=== PATIENT | male | born 1995 | race Caucasian/White ===

== ENCOUNTER 2016-08-09 05:48 | Emergency (ER) | payer OTHER ==
[~2016-08-09] VITALS: Ht 182.9 cm; Wt 120.0 kg
[2016-08-09] MEDS ORDERED: METOCLOPRAMIDE INJ 10MG/2ML VIAL (J2765) IV ONE (06:15)
[2016-08-09] MEDS ORDERED: NS 1,000 ML IV ONE (06:15)
[2016-08-09 07:08] LABS: BASO % 0.6 % (0.0-1.0); EOS % 0.6 % (0.0-3.0); LARGE UNSTAINED CELL # 0.1 K/mm3 (0.0-0.4); LARGE UNSTAINED CELL % 1.9 % (0.0-4.0); LYMPH # 1.8 K/mm3 (1.5-6.5); LYMPH % 26.5 % (24.0-44.0); MEAN CORPUSCULAR HEMOGLOBIN 33.3 pg (27.0-33.0); MEAN CORPUSCULAR HGB CONC 36.5 g/dl (32.0-36.5); MONO # 0.3 K/mm3 (0.0-0.8); MONO % 5.4 % (0.0-5.0); NEUTROPHILS # 4.2 K/mm3 (1.8-7.7); NEUTROPHILS % 65.1 % (36.0-66.0); PLATELET COUNT, AUTOMATED 269 k/mm3 (150-450); RED CELL DISTRIBUTION WIDTH 13.5 % (11.5-14.5); WHITE BLOOD COUNT 6.4 K/mm3 (4.0-10.0)
[2016-08-09 07:13] LABS: METHADONE URINE NEGATIVE (NEGATIVE)
[2016-08-09 07:15] LABS: ALBUMIN 4.3 GM/DL (3.2-5.2); ALBUMIN/GLOBULIN RATIO 1.13 (1.00-1.93); ALKALINE PHOSPHATASE 56 U/L (45-117); ALT/SGPT 70 U/L (12-78); ANION GAP 11 MEQ/L (8-16); AST/SGOT 35 U/L (15-37); BILIRUBIN,DIRECT 0.2 MG/DL (0.0-0.2); BILIRUBIN,TOTAL 0.8 MG/DL (0.2-1.0); BLOOD UREA NITROGEN 13 MG/DL (7-18); CALCIUM LEVEL 9.7 MG/DL (8.5-10.1); CARBON DIOXIDE LEVEL 26 MEQ/L (21-32); CHLORIDE LEVEL 97 MEQ/L (98-107); CREATININE FOR GFR 1.15 MG/DL (0.70-1.30); GLOMERULAR FILTRATION RATE > 60.0 (>60); GLUCOSE, FASTING 122 MG/DL (70-105); MAGNESIUM LEVEL 1.5 MG/DL (1.8-2.4); POTASSIUM SERUM 3.3 MEQ/L (3.5-5.1); SODIUM LEVEL 134 MEQ/L (136-145); TOTAL PROTEIN 8.1 GM/DL (6.4-8.2)
[2016-08-09] MEDS ORDERED: MAGNESIUM OXIDE 400 MG TAB (MAG-OX) PO ONE (07:45)
[2016-08-09] MEDS ORDERED: POTASSIUM CHLORIDE 10 MEQ SR TABLET PO ONE (07:45)
[2016-08-09 08:04] VITALS: BP 178/92
--- NOTE | 2016-08-09 08:13 | ED PDOC ---
Post-Departure Follow-Up not notified by nursing of patient's discharge blood pressure. elevation likely due to medication non-compliance and acute illness. I confirmed with patient that he has blood pressure medication at home and gave instruction to resume medications and follow up next week with primary care provider. Patient had no complaints of headache, blurry vision or chest pain during stay in ER [facility] PA-C. Aug 09, 2016 08:13
== END 2016-08-09 08:05 | disposition home or self-care (01) ==
LOC: M ED 06:40
DX: T62.91XA Toxic effect of unspecified noxious substance eaten as food, accidental (unintentional), initial encounter (principal); R11.2 Nausea with vomiting, unspecified; E86.0 Dehydration; I10 Essential (primary) hypertension; Z91.14 Patient's other noncompliance with medication regimen; F17.210 Nicotine dependence, cigarettes, uncomplicated
CPT/HCPCS: 80048; 80076; 80306; 81001; 82550; 83690; 83735; 85025; 96361; 96374; 99283; J2765

== ENCOUNTER 2016-09-19 12:58 | Emergency (ER) | payer OTHER ==
[~2016-09-19] VITALS: Ht 154.9 cm; Wt 133.7 kg
[2016-09-19] MEDS ORDERED: HYDR25TAB PO (13:06)
[2016-09-19 14:59] VITALS: BP 144/81
== END 2016-09-19 15:01 | disposition home or self-care (01) ==
LOC: M ED 12:58
DX: F10.10 Alcohol abuse, uncomplicated (principal); I10 Essential (primary) hypertension; Z79.899 Other long term (current) drug therapy

== ENCOUNTER 2016-09-20 12:27 | Emergency (ER) | payer OTHER ==
[~2016-09-20] VITALS: Ht 180.3 cm; Wt 125.0 kg
[~2016-09-20 12:27] MED LIST: HYDR25TAB PO
[2016-09-20] MEDS ORDERED: OXAZEPAM 15 MG CAP PO ONE (13:00)
[2016-09-20] MEDS ORDERED: LISINOPRIL 20 MG TAB PO ONE (13:00)
[2016-09-20] MEDS ORDERED: ONDANSETRON 4MG/2ML VIAL (J2405) IV ONE (13:15)
[2016-09-20 13:33] LABS: BASO % 0.7 % (0.0-1.0); EOS % 0.3 % (0.0-3.0); LARGE UNSTAINED CELL # 0.1 K/mm3 (0.0-0.4); LARGE UNSTAINED CELL % 1.7 % (0.0-4.0); LYMPH # 1.8 K/mm3 (1.5-6.5); LYMPH % 26.5 % (24.0-44.0); MEAN CORPUSCULAR HEMOGLOBIN 32.6 pg (27.0-33.0); MEAN CORPUSCULAR HGB CONC 36.1 g/dl (32.0-36.5); MEAN CORPUSCULAR VOLUME 90.3 fl (80.0-96.0); MONO # 0.3 K/mm3 (0.0-0.8); MONO % 4.9 % (0.0-5.0); NEUTROPHILS # 4.2 K/mm3 (1.8-7.7); NEUTROPHILS % 65.9 % (36.0-66.0); PLATELET COUNT, AUTOMATED 275 k/mm3 (150-450); RED CELL DISTRIBUTION WIDTH 13.4 % (11.5-14.5); WHITE BLOOD COUNT 6.3 K/mm3 (4.0-10.0)
[2016-09-20 13:34] VITALS: BP 162/76
[2016-09-20 13:44] LABS: ALBUMIN 3.9 GM/DL (3.2-5.2); ALBUMIN/GLOBULIN RATIO 1.08 (1.00-1.93); ALKALINE PHOSPHATASE 48 U/L (45-117); ALT/SGPT 67 U/L (12-78); ANION GAP 9 MEQ/L (8-16); AST/SGOT 36 U/L (15-37); BILIRUBIN,DIRECT 0.2 MG/DL (0.0-0.2); BILIRUBIN,TOTAL 0.8 MG/DL (0.2-1.0); BLOOD UREA NITROGEN 13 MG/DL (7-18); CARBON DIOXIDE LEVEL 28 MEQ/L (21-32); CHLORIDE LEVEL 105 MEQ/L (98-107); CREATININE FOR GFR 1.17 MG/DL (0.70-1.30); GLOMERULAR FILTRATION RATE > 60.0 (>60); GLUCOSE, FASTING 116 MG/DL (70-105); POTASSIUM SERUM 3.8 MEQ/L (3.5-5.1); SODIUM LEVEL 142 MEQ/L (136-145); TOTAL PROTEIN 7.5 GM/DL (6.4-8.2)
[2016-09-20 15:38] VITALS: BP 146/66
== END 2016-09-20 15:51 | disposition home or self-care (01) ==
LOC: EDBD 12:27 → M ED 12:27
DX: F10.10 Alcohol abuse, uncomplicated (principal); I10 Essential (primary) hypertension; Z91.14 Patient's other noncompliance with medication regimen; R11.0 Nausea
CPT/HCPCS: 80048; 80076; 83690; 85025; 93041; 94760; 96374; 99285; G0480; J2405

== ENCOUNTER 2016-09-29 20:13 | Inpatient (IN) | payer OTHER ==
[~2016-09-29] VITALS: Ht 180.3 cm; Wt 129.0 kg
[2016-09-29 21:05] LABS: MEAN CORPUSCULAR HEMOGLOBIN 33.6 pg (27.0-33.0); MEAN CORPUSCULAR HGB CONC 36.4 g/dl (32.0-36.5); MEAN CORPUSCULAR VOLUME 92.2 fl (80.0-96.0); RED CELL DISTRIBUTION WIDTH 12.4 % (11.5-14.5); WHITE BLOOD COUNT 6.8 K/mm3 (4.0-10.0)
[2016-09-29 21:29] LABS: ALBUMIN 3.8 GM/DL (3.2-5.2); ALBUMIN/GLOBULIN RATIO 1.09 (1.00-1.93); ALKALINE PHOSPHATASE 56 U/L (45-117); ALT/SGPT 116 U/L (12-78); ANION GAP 15 MEQ/L (8-16); AST/SGOT 52 U/L (15-37); BILIRUBIN,DIRECT 0.1 MG/DL (0.0-0.2); BILIRUBIN,TOTAL 0.3 MG/DL (0.2-1.0); BLOOD UREA NITROGEN 14 MG/DL (7-18); CALCIUM LEVEL 8.1 MG/DL (8.5-10.1); CARBON DIOXIDE LEVEL 21 MEQ/L (21-32); CHLORIDE LEVEL 108 MEQ/L (98-107); GLOMERULAR FILTRATION RATE > 60.0 (>60); GLUCOSE, FASTING 146 MG/DL (70-105); POTASSIUM SERUM 3.7 MEQ/L (3.5-5.1); SODIUM LEVEL 144 MEQ/L (136-145); TOTAL PROTEIN 7.3 GM/DL (6.4-8.2)
[2016-09-29 21:44] LABS: METHADONE URINE NEGATIVE (NEGATIVE)
[2016-09-30] MEDS ORDERED: MOM 30ML SUSPENSION UDC PO PRN (10:45)
[2016-09-30] MEDS ORDERED: LORazepam 2 MG TAB PO PRN (10:45)
[2016-09-30] MEDS ORDERED: MAALOX 30 ML SUSP *UDC PO PRN (10:45)
[2016-09-30] MEDS ORDERED: ACETAMINOPHEN TAB 650MG DOSE (2X325MG) PO PRN (10:45)
[2016-09-30] MEDS: MULTIVITAMINS/MINERALS THERAP 1 TAB PO SCH (11:09)
[2016-09-30] MEDS: FOLIC ACID 1 MG TAB PO SCH (11:09)
[2016-09-30] MEDS: CitaloPRAM (CeleXA) 20 MG TAB PO SCH (11:09)
[2016-09-30] MEDS: THIAMINE 100 MG TAB PO SCH ×2 (11:09→21:40)
[2016-09-30 12:57] VITALS: BP 162/92
[2016-09-30] MEDS ORDERED: HALOPERIDOL 5 MG TAB PO PRN (14:00)
[2016-09-30 14:57] VITALS: BP 150/81
[2016-09-30 18:50] VITALS: BP 130/80
--- NOTE | 2016-09-30 20:55 | MHHPE ---
DATE OF ADMISSION: 09/30/2016 CURRENT MEDICATIONS: None. CHIEF COMPLAINT: "I am an alcoholic." HISTORY OF PRESENT ILLNESS: This is a 21-year-old white male, single living in the [facility]. He has been in the [employer] for 2-1/2 years. He has been enrolled in the [facility]'s ENA program. He drinks on a daily basis, mostly at night, to help him sleep. He has had insomnia for approximately one year. He has a sleep latency of 2+ hours. He always wakes up at 3:00 a.m. He never feels rested in the morning when he does wake up. He feels tired all day long. He continues to drink heavily at night even though it has not been very beneficial for his insomnia. He has never had a sleep study. He does snore heavily. 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 He has gained 50 pounds since being in the [facility]. He likes to drink whiskey to the point of black outs. He has never had delirium tremens or seizures. The patient has been called "ENA failure." He is at risk of being terminated from the . The patient was drinking heavily last night and texted his father that he did not want to live anymore. He also commented on getting a life insurance policy. The patient denies a history of depression. He states that his appetite is good, in fact it is too good. He has gained weight, as mentioned above. He states that his concentration is fine. His level of energy is relatively good. He states that his motivation is fine. He minimizes any history of depression. He denies a history of anxiety disorder. PAST PSYCHIATRIC HISTORY: The patient has never seen a psychiatrist. He is not enrolled in the [place] [facility], just the ENA program. He has never been in a psychiatric hospital. He has never been on psychotropics. No history of suicide attempts. MEDICAL HISTORY: 1. Hypertension. 2. He has a bad left knee. 3. The patient may have sleep apnea but has not been tested. SURGICAL HISTORY: Two knee operations and a slipped knee. ALLERGIES TO MEDICATIONS: None. LEGAL HISTORY: None noted. CHEMICAL DEPENDENCY: History of alcoholism. He has never been in the inpatient rehabilitation. He refuses inpatient rehabilitation claiming that it would be like shelter. SOCIAL HISTORY: The patient's father was in the [employer]. He was born in [place]. The patient graduated high school in [place]. His father is now out of the and his parents are now living in [place]. The patient has a 17-year-old brother who just graduated high school. Relationship with his family is good. The patient did go to college for one year after high school before joining the [employer]. The patient hopes to get the GI bill. This may be at risk if he is terminated early. FAMILY PSYCHIATRIC HISTORY: The patient states that his grandfather is an alcoholic. No other family history of depression. MENTAL STATUS EXAMINATION: The patient is alert and oriented. He is irritable. He is on edge. He is anxious. He seems dysphoric. Insight appears poor. Judgment appears poor. He denies being suicidal or homicidal. No signs of psychosis. He is not hearing voices. No paranoia or thought disorder. Grooming and hygiene appear good. Memory functions appear intact. ASSESSMENT: The patient may have sleep apnea, as mentioned above. The patient does appear to have chronic insomnia, which has worsened over the past year as he has gained 50 pounds. The patient is self medicating with alcohol. The patient has failed two ENA programs and is unfortunately not willing to consider an inpatient rehabilitation. DIAGNOSES: 1. Adjustment disorder with mixed emotional features. 2. Alcohol use disorder. PLAN: confirmed. Continue Celexa 20 mg in the morning prescribed by Dr. Hyde. Add Topamax 50 mg at night to help possibly with sleep and alcohol craving. The patient is to be involved with hospital milieu.
[2016-09-30] MEDS: TOPIRAMATE (TopAMAX) 25 MG TAB PO SCH (21:40)
[2016-10-01 07:07] VITALS: BP 165/101
[2016-10-01] MEDS: FOLIC ACID 1 MG TAB PO SCH (08:18)
[2016-10-01] MEDS: THIAMINE 100 MG TAB PO SCH ×2 (08:18→21:14)
[2016-10-01] MEDS: MULTIVITAMINS/MINERALS THERAP 1 TAB PO SCH (08:18)
[2016-10-01] MEDS: CitaloPRAM (CeleXA) 20 MG TAB PO SCH (08:18)
[2016-10-01 08:30] VITALS: BP 158/94
--- NOTE | 2016-10-01 10:10 | HPEPDOC ---
Medical History and Physical Date of Admission Sep 30, 2016 at 10:34 History and Physical PCP: [facility] ATTENDING: Dr. Denis Smyth HPI: 21yoM admitted to [facility] for unspecified depressive disorder, being medically examined today. No acute medical complaints today. Denies any fevers, chills, weakness, fatigue, JAMIL, CP, SOB, cough, palpitations, abdominal pain, N/V /D or changes in bowel or bladder habits. PMHx: Hypertension Chronic left knee pain PSHX: Left knee ACL/MCL/meniscus repair SOCHX: Resides in: [facility], from [place] Marital Status: Single Kids: None Employment: Active duty Tobacco use: One half to one pack per day ETOH: Fifth of liquor daily since January 2016 Illicit Drugs: Denies IV Drug Use: Denies Tattoos done unprofessionally: Denies FAMHX: Mother: Alive, well Father: Alive, hypertension Siblings: Brother Alive, well Children: None Unexpected deaths due to medical reasons: None. ROS: As noted in HPI, otherwise 11pt ROS of systems reviewed and unremarkable. PE: GEN: 21yoM, appears stated age. Well-nourished, well developed. No acute distress. Alert and oriented x 3. Pleasant, interactive. HEENT: Normocephalic, atraumatic. Pupils are equal, round, and reactive to light. Extraocular movements are intact. No nystagmus appreciated. Sclera are nonicteric. Conjunctiva without injection. Nose midline. Nasal turbinates without bogginess. EACs both patent BL. TMs both visualized and dos santos with good cone of light, no bulging or erythema. No facial asymmetry. Moist mucous membranes. Dentition fair. Pharynx pink and moist, no cobblestoning. Neck supple , trachea midline. No lymphadenopathy or thyromegaly appreciated. CHEST: Regular rate and rhythm, +S1, +S2 LUNGS: Clear to auscultation bilaterally. No wheezes, rales, or rhonchi. Breathing appears symmetric and easy. Patient is speaking in full sentences. No accessory muscle use. ABD: Round, soft, non-tender, non-distended. +Bowel sounds throughout. No rebound or guarding. No costovertebral angle tenderness. EXT: Pulses 2+ bilaterally dorsalis pedis and radial. No lower extremity edema appreciated. SKIN: Brownlee, dry, warm. Capillary refill <2sec. No rashes. NEURO: Alert and oriented x 3. Cranial nerves III-XII are intact. No focal deficits appreciated. EKG: pending. A&P: 21yoM admitted to [facility] for unspecified depressive disorder 1. Psych. Plan per Psychiatry. Obtain baseline EKG to assure the safety of psychiatric medications as they can prolong the QT interval. 2. Nicotine dependence. Patch available. 3. Elevated LFTs. Recheck CMP in a.m. 4. Follow up with PCP on discharge. 5. Substance abuse. Per psychiatry. Continue with MVI, Thiamine, and Folic Acid supplementation. 6. Elevated glucose. Recheck fasting CMP in a.m. Check hemoglobin A1c. 7. Obesity. BMI 39.9. Complicates care. TSH within normal limits. Add hemoglobin A1c. 8. Hypertension. Continue HCTZ 25 mg by mouth daily. Monitor blood pressure trend. 9. Staff member Efrain present throughout exam. Vital Signs Vital Signs Date Time Temp Pulse Resp B/P (MAP) Pulse Ox O2 Delivery O2 Flow Rate FiO2 10/01/16 07:07 98.0 78 18 165/101 (122) Room Air 09/30/16 18:50 95 Laboratory Data Labs 24H Item Value Date Time White Blood Count 6.8 K/mm3 09/29/162051 Red Blood Count 4.95 M/mm3 09/29/162051 Hemoglobin 16.6 g/dl 09/29/162051 Hematocrit 45.6 % 09/29/162051 Mean Corpuscular Volume 92.2 fl 09/29/162051 Mean Corpuscular Hemoglobin 33.6 pg H 09/29/162051 Mean Corpuscular Hemoglobin Concent 36.4 g/dl 09/29/162051 Red Cell Distribution Width 12.4 % 09/29/162051 Platelet Count 301 k/mm3 09/29/162051 Sodium Level 144 MEQ/L 09/29/162052 Potassium Level 3.7 MEQ/L 09/29/162052 Chloride Level 108 MEQ/L H 09/29/162052 Carbon Dioxide Level 21 MEQ/L 09/29/162052 Anion Gap 15 MEQ/L 09/29/162052 Blood Urea Nitrogen 14 MG/DL 09/29/162052 Creatinine 1.00 MG/DL 09/29/162052 Glomerular Filtration Rate > 60.0 09/29/162052 Fasting Glucose 146 MG/DL H 09/29/162052 Calcium Level 8.1 MG/DL L 09/29/162052 Total Bilirubin 0.3 MG/DL 09/29/162052 Direct Bilirubin 0.1 MG/DL 09/29/162052 Aspartate Amino Transf (AST/SGOT) 52 U/L H 09/29/162052 Alanine Aminotransferase (ALT/SGPT) 116 U/L H 09/29/162052 Alkaline Phosphatase 56 U/L 09/29/162052 Total Protein 7.3 GM/DL 09/29/162052 Albumin 3.8 GM/DL 09/29/162052 Albumin/Globulin Ratio 1.09 09/29/162052 Thyroid Stimulating Hormone (TSH) 1.260 uIU/ML 09/29/162052 Salicylates Level < 1.7 MG/DL L 09/29/162052 Urine Opiates Screen NEGATIVE 09/29/162051 Urine Methadone Screen NEGATIVE 09/29/162051 Acetaminophen Level < 2.0 UG/ML L 09/29/162052 Urine Barbiturates Screen NEGATIVE 09/29/162051 Urine Phencyclidine Screen NEGATIVE 09/29/162051 Urine Amphetamines Screen NEGATIVE 09/29/162051 Urine Benzodiazepines Screen NEGATIVE 09/29/162051 Urine Cocaine Metabolite Screen NEGATIVE 09/29/162051 Urine Cannabinoids Screen NEGATIVE 09/29/162051 Ethyl Alcohol Level 0.300 % H 09/29/162052 Home Medications Scheduled Hydrochlorothiazide (Hydrochlorothiazide) 25 Mg Tab, 25 MG PO DAILY Allergies Coded Allergies: No Known Allergies (Unverified , 09/29/16) Guillermina Arteaga Oct 01, 2016 10:10
[2016-10-01] MEDS: hydroCHLOROthiazide 25 MG TAB PO SCH (10:24)
[2016-10-01 11:46] VITALS: BP 148/96
--- NOTE | 2016-10-01 12:06 | MHIPN ---
DATE: 10/01/2016 VITAL SIGNS: Temperature 98.0, pulse 78, respirations 18, blood pressure 165/101. CURRENT MEDICATIONS: - Celexa 20 mg in the morning - Topamax 50 mg at night - trazodone 50 mg at night as needed - folic acid 1 mg daily - multivitamin daily - thiamine 100 mg twice a day HISTORY OF PRESENT ILLNESS: The patient complains of the heat in his room. Last night he found it hard to sleep. He does have chronic insomnia, however, as well. His roommate is leaving so the patient plans to move closer to the air conditioner unit. He reports that his depression is minimal. Anxiety is mild. Alcohol withdrawal symptoms are mild as well. He tolerated the morning dose of Celexa well. He has had no side effects on the Topamax last night. The patient has resigned himself to be here. The patient is encouraged to attend milieu therapy program. The patient states that his father flew in last night from [place] and will be visiting later today. MENTAL STATUS EXAMINATION: The patient is alert, oriented, cooperative. Affect is sad and appears subdued. He minimizes depression. Anxiety appears mild to moderate. He denies any psychotic symptoms. No signs of paranoia or thought disorder. Grooming and hygiene appear good. He denies being homicidal or suicidal. DIAGNOSES: 1. Adjustment disorder with mixed emotional features. 2. Alcohol use disorder. PLAN: Continue Celexa and Topamax combination. Involve in hospital milieu. Monitor mood for any suicide potential.
[2016-10-01 18:17] VITALS: BP 150/96
[2016-10-01 21:13] VITALS: BP 150/90
[2016-10-01] MEDS: traZODone 50 MG TAB PO PRN (21:14)
[2016-10-01] MEDS: TOPIRAMATE (TopAMAX) 25 MG TAB PO SCH (21:14)
[2016-10-02 07:01] VITALS: BP 118/82
[2016-10-02 08:21] LABS: ALBUMIN 4.3 GM/DL (3.2-5.2); ALBUMIN/GLOBULIN RATIO 1.19 (1.00-1.93); ALKALINE PHOSPHATASE 62 U/L (45-117); ALT/SGPT 91 U/L (12-78); ANION GAP 10 MEQ/L (8-16); AST/SGOT 29 U/L (15-37); BILIRUBIN,TOTAL 1.2 MG/DL (0.2-1.0); BLOOD UREA NITROGEN 16 MG/DL (7-18); CALCIUM LEVEL 9.8 MG/DL (8.5-10.1); CARBON DIOXIDE LEVEL 28 MEQ/L (21-32); CHLORIDE LEVEL 101 MEQ/L (98-107); CREATININE FOR GFR 1.28 MG/DL (0.70-1.30); GLOMERULAR FILTRATION RATE > 60.0 (>60); GLUCOSE, FASTING 116 MG/DL (70-105); POTASSIUM SERUM 4.2 MEQ/L (3.5-5.1); SODIUM LEVEL 139 MEQ/L (136-145); TOTAL PROTEIN 7.9 GM/DL (6.4-8.2)
[2016-10-02] MEDS: CitaloPRAM (CeleXA) 20 MG TAB PO SCH (09:10)
[2016-10-02] MEDS: MULTIVITAMINS/MINERALS THERAP 1 TAB PO SCH (09:10)
[2016-10-02] MEDS: FOLIC ACID 1 MG TAB PO SCH (09:10)
[2016-10-02] MEDS: hydroCHLOROthiazide 25 MG TAB PO SCH (09:10)
[2016-10-02] MEDS: THIAMINE 100 MG TAB PO SCH ×2 (09:10→21:33)
[2016-10-02 10:34] VITALS: BP 118/82
[2016-10-02 18:11] VITALS: BP 134/90
--- NOTE | 2016-10-02 19:42 | MHIPN ---
DATE: 10/02/2016 VITAL SIGNS: Temperature 97.9, pulse 96, respirations 18, blood pressure 118.82. CURRENT MEDICATION: - Topamax 50 mg at bedtime (hs), - trazodone 50 mg at bedtime (hs) - Celexa 20 mg every morning HISTORY OF PRESENT ILLNESS: The patient feels much cooler in his room now. His bed is right next to the air conditioner. He sleep much better with the combination trazodone and Topamax. The insomnia had also been the big trigger for relapse. The patient reports his anxiety symptoms to be mild. Denies current depressive symptoms. His father is visiting from [place] The patient appreciates this. The patient complains of feeling bored here on the unit and is unhappy being hospitalized. 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 He is having no side effects from the Celexa or Topamax. He states that he will probably discontinue the psychiatric medications upon discharge as he does not believe in them. MENTAL STATUS EXAMINATION: The patient is alert, oriented and cooperative. Affect remains subdued with some dysphoria, but he denies depression. Anxiety is mild. He is not psychotic. He denies being suicidal or homicidal. No signs of psychosis. Grooming and hygiene are good. DIAGNOSIS: 1. Adjustment disorder with mixed emotional features. 2. Alcohol use disorder. PLAN: Continue psychotropics. Staff interviewed his father. Encouraged the patient to be involved in hospital Milieu.
[2016-10-02] MEDS: TOPIRAMATE (TopAMAX) 100 MG TAB PO SCH (21:33)
[2016-10-02] MEDS: traZODone 50 MG TAB PO PRN (21:34)
--- NOTE | 2016-10-02 22:43 | ECGEPIP ---
Stationary ECG Study [facility] Test Date: 2016-10-01 Pat Name: GALEN RODRIGEZ Department: Room: [place] [address] Gender: M Local Sales Manager: RADHA : 1995 Requested By: Guillermina Arteaga Order Number: [id number] Reading MD: Truman Rogers Measurements Intervals [place] Rate: 79 P: 69 [place]: 152 QRS: -8 QRSD: 117 T: -14 QT: 369 QTc: 423 Interpretive Statements SINUS RHYTHM MODERATE INTRAVENTRICULAR CONDUCTION DELAY NO PRIOR TRACING IN THE SYSTEM Electronically Signed On 10-02-2016 22:43:06 EDT by Truman Rogers
[2016-10-03 07:18] VITALS: BP 123/69
[2016-10-03 07:46] LABS: ALBUMIN/GLOBULIN RATIO 1.03 (1.00-1.93); ALKALINE PHOSPHATASE 59 U/L (45-117); ALT/SGPT 78 U/L (12-78); ANION GAP 7 MEQ/L (8-16); AST/SGOT 25 U/L (15-37); BILIRUBIN,TOTAL 0.7 MG/DL (0.2-1.0); BLOOD UREA NITROGEN 18 MG/DL (7-18); CALCIUM LEVEL 9.3 MG/DL (8.5-10.1); CARBON DIOXIDE LEVEL 29 MEQ/L (21-32); CHLORIDE LEVEL 102 MEQ/L (98-107); CREATININE FOR GFR 1.18 MG/DL (0.70-1.30); GLOMERULAR FILTRATION RATE > 60.0 (>60); GLUCOSE, FASTING 99 MG/DL (70-105); POTASSIUM SERUM 3.6 MEQ/L (3.5-5.1); SODIUM LEVEL 138 MEQ/L (136-145); TOTAL PROTEIN 7.9 GM/DL (6.4-8.2)
[2016-10-03] MEDS: hydroCHLOROthiazide 25 MG TAB PO SCH (08:13)
[2016-10-03] MEDS: MULTIVITAMINS/MINERALS THERAP 1 TAB PO SCH (08:13)
[2016-10-03] MEDS: CitaloPRAM (CeleXA) 20 MG TAB PO SCH (08:13)
[2016-10-03] MEDS: FOLIC ACID 1 MG TAB PO SCH (08:13)
[2016-10-03 18:00] VITALS: BP 114/78
--- NOTE | 2016-10-03 18:20 | MHIPN ---
DATE: 10/03/2016 VITAL SIGNS: Temperature 98.3, pulse 80, respirations 18, blood pressure 123/69. CURRENT MEDICATIONS: - Topamax 100 mg at night - trazodone 50 mg at night as needed - Celexa 20 mg in the morning HISTORY OF PRESENT ILLNESS: The patient is still sleeping better. He finds the medication helpful. He falls asleep in about one hour, which is marked progress for him. He will toss and turn at night. He wakes up in the morning feeling more rested. He has no side effects from the Topamax or trazodone. His father did visit and convinced him to into a 28 day inpatient chemical dependency unit through the [employer]. The patient is strongly urged to consider this very good advice. The patient's father is visiting frequently, but has to go back to [place] this weekend as he is a teacher. MENTAL STATUS EXAMINATION: The patient is alert, oriented and cooperative. Affect is somewhat brighter. He still reports some dysphoria and mild depression. Anxiety is mild. No signs of psychosis. The patient is not a danger to self or others. The patient is not psychotic. DIAGNOSES: 1. Adjustment disorder with mixed emotional features. 2. Alcohol use disorder. PLAN: Continue current psychotropics. Obtain input from father. Encourage 28 day inpatient chemical dependency program.
[2016-10-03] MEDS: TOPIRAMATE (TopAMAX) 100 MG TAB PO SCH (20:15)
[2016-10-04 06:00] VITALS: BP 171/92
[2016-10-04] MEDS: hydroCHLOROthiazide 25 MG TAB PO SCH (08:30)
[2016-10-04] MEDS: CitaloPRAM (CeleXA) 20 MG TAB PO SCH (08:30)
[2016-10-04] MEDS: MULTIVITAMINS/MINERALS THERAP 1 TAB PO SCH (08:30)
[2016-10-04] MEDS: FOLIC ACID 1 MG TAB PO SCH (08:30)
[2016-10-04 08:31] VITALS: BP 142/80
[2016-10-04 18:00] VITALS: BP 138/78
--- NOTE | 2016-10-04 19:25 | MHIPN ---
DATE: 10/04/2016 VITAL SIGNS: Temperature 97.1, pulse 70, respirations 18, blood pressure 171/92. CURRENT MEDICATIONS: - Topamax 100 mg at bedtime - trazodone 50 mg at bedtime as needed - Celexa 20 mg every morning HISTORY OF PRESENT ILLNESS: The patient states his appetite remains good. The quality of his sleep is better since being on the psychotropics. It still takes about an hour of sleep latency before he falls asleep at night. He will wake up 3-4 times at night for about 20 minutes at a stretch. This is actually a marked improvement over the past. He is having no side effects from the Topamax. His father is visiting. He states his mood is improving. He is socializing well with his peers in the here on the unit. MENTAL STATUS EXAMINATION: Mood and affect appear improved with good eye contact. Anxiety is reduced. Depression reduced. Not suicidal. Not homicidal. Insight and judgment seem improved. DIAGNOSES: 1. Adjustment disorder with mixed emotional features. 2. Alcohol use disorder. PLAN: Increase Topamax up to 150 mg at bedtime. No change in Celexa and trazodone. Monitor over the weekend. Contact father for collateral input. LILLI
[2016-10-04] MEDS: TOPIRAMATE (TopAMAX) 100 MG TAB PO SCH (21:15)
[2016-10-05 07:14] VITALS: BP 138/88
[2016-10-05] MEDS: CitaloPRAM (CeleXA) 20 MG TAB PO SCH (08:16)
[2016-10-05] MEDS: FOLIC ACID 1 MG TAB PO SCH (08:16)
[2016-10-05] MEDS: hydroCHLOROthiazide 25 MG TAB PO SCH (08:16)
[2016-10-05] MEDS: MULTIVITAMINS/MINERALS THERAP 1 TAB PO SCH (08:17)
[2016-10-05 18:00] VITALS: BP 140/90
[2016-10-05] MEDS: TOPIRAMATE (TopAMAX) 100 MG TAB PO SCH (21:09)
[2016-10-05] MEDS: traZODone 50 MG TAB PO PRN (21:10)
[2016-10-06 06:44] VITALS: BP 132/62
[2016-10-06] MEDS: CitaloPRAM (CeleXA) 20 MG TAB PO SCH (08:37)
[2016-10-06] MEDS: hydroCHLOROthiazide 25 MG TAB PO SCH (08:37)
[2016-10-06] MEDS: FOLIC ACID 1 MG TAB PO SCH (08:37)
[2016-10-06] MEDS: MULTIVITAMINS/MINERALS THERAP 1 TAB PO SCH (08:37)
[2016-10-06 18:40] VITALS: BP 124/82
[2016-10-06] MEDS: TOPIRAMATE (TopAMAX) 100 MG TAB PO SCH (22:30)
[2016-10-06] MEDS: traZODone 50 MG TAB PO PRN (22:31)
[2016-10-07 06:50] VITALS: BP 137/72
[2016-10-07] MEDS: CitaloPRAM (CeleXA) 20 MG TAB PO SCH (08:18)
[2016-10-07] MEDS: MULTIVITAMINS/MINERALS THERAP 1 TAB PO SCH (08:18)
[2016-10-07] MEDS: FOLIC ACID 1 MG TAB PO SCH (08:18)
[2016-10-07] MEDS: hydroCHLOROthiazide 25 MG TAB PO SCH (08:19)
[2016-10-07] MEDS ORDERED: TOPI200T7 PO (11:13)
[2016-10-07] MEDS ORDERED: CELE20TA PO (11:13)
[2016-10-07] MEDS ORDERED: TRAZ-136 PO (11:13)
[2016-10-07] MEDS ORDERED: traZODone 100 MG TAB PO PRN (11:15)
--- NOTE | 2016-10-07 15:26 | MHDS ---
DATE OF ADMISSION: 09/30/2016 DATE OF DISCHARGE: 10/07/2016 VITAL SIGNS: Temperature 98.4, pulse 89, respirations 18, blood pressure 137/72. LABORATORY DATA: CBC within normal limits except for MCH of 33.6. Serum chemistry normal. Toxicology screen was negative. Ethyl alcohol was 0.3, however. DISCHARGE MEDICATIONS: - Topamax 200 mg at bedtime - trazodone 100 mg at bedtime as needed - hydrochlorothiazide 25 mg daily - Celexa 20 mg every morning DISCHARGE DIAGNOSES: 1. Adjustment disorder with mixed emotional features. 2. Alcohol use disorder. CHIEF COMPLAINT: "I'm an alcoholic." HISTORY OF PRESENT ILLNESS: This is a 21-year-old white male, single, living in the [facility]. He has been in the [employer] for two and a half years. He has been enrolled in the [employer] substance abuse [facility] (ENA) program. He is still drinking on a daily basis. He claims he drinks at night to help with insomnia. He has had insomnia for approximately one year. He has a sleep latency of 2-3 hours a night. He always wakes up at 3:00 a.m. as well. The patient has gained 50 pounds since being in the [employer]. He does snore heavily. He has never been checked for sleep apnea, he claims. He does have a history of blackouts with his alcohol consumption. He likes to drink whiskey. The patient had texted his father while intoxicated that he did not want to live any longer. He had also commented that he was getting a life insurance policy. PROGRESS ON THE UNIT: The patient was placed on the clinical institute withdrawal assessment (CIWA) protocol but did not show signs of alcohol withdrawal. The patient was placed on citalopram 20 mg every morning to help with any depressive symptoms. He was started on Topamax 50 mg at bedtime to help with sleep and possibly for alcohol craving. Side effect profile of Topamax was reviewed with the patient. He has no history of kidney stones. He is encouraged to drink plenty water and fluids. The Topamax was gradually increased during his hospital stay up to a total of 200 mg at bedtime at time of discharge. He tolerated it well. He has no paresthesias. His mood definitely improved. His father visited from [place] and was quite supportive. He was reasonably well active in the therapy group program here on the unit. The patient's father had highly recommended that he consider the 28-day inpatient chemical dependency program. He was initially quite resistant but with his father's positive support, he appeared to willing to follow through with this treatment option. The patient shared that he was skeptical about taking medications and could not commit that he would continue them upon discharge. The patient was encouraged to do so, however. The patient was agreeable to followup with outpatient behavioral health program. MENTAL STATUS EXAMINATION: At time of discharge, mood and affect were much improved. Anxiety much improved. No signs of depression or dysphoria. He was not homicidal and not suicidal. The patient was not psychotic, not hearing voices. No paranoia or thought disorder. Grooming and hygiene were quite good. Insight and judgment were fair. No signs of distress at time of discharge. ASSESSMENT: The patient appeared to reach maximal hospital benefit. PLAN: Followup in the [employer] substance abuse program (ENA) as well as [facility].
[2016-10-07] MEDS ORDERED: TOPIRAMATE (TopAMAX) 100 MG TAB PO SCH (21:00)
== END 2016-10-07 12:05 | disposition home or self-care (01) | DRG 882 ==
LOC: M ED 20:13 → M ED INP 09-30 10:34 → M PSY 09-30 12:50
PROVIDERS: ADMIT Psychiatry & Neurology Psychiatry; ATTEND Psychiatry & Neurology Psychiatry
DX: F43.23 Adjustment disorder with mixed anxiety and depressed mood (principal); F10.10 Alcohol abuse, uncomplicated; Z79.899 Other long term (current) drug therapy; F17.210 Nicotine dependence, cigarettes, uncomplicated; E66.9 Obesity, unspecified; Z68.39 Body mass index [BMI] 39.0-39.9, adult; I10 Essential (primary) hypertension; R73.01 Impaired fasting glucose; R79.89 Other specified abnormal findings of blood chemistry; F19.10 Other psychoactive substance abuse, uncomplicated

== ENCOUNTER 2017-02-06 16:04 | Inpatient (IN) | payer OTHER ==
[2017-02-06] MEDS: PROMETHAZINE INJ 25 MG/ML VIAL (J2550) IV (16:45)
[2017-02-06] MEDS: LORazepam 2 MG/ML VIAL (J2060) IV ×3 (16:45→19:03)
[2017-02-06] MEDS: NS 1,000 ML IV ×2 (16:46→17:30)
[2017-02-06 16:50] LABS: INR 0.93
[2017-02-06 17:16] LABS: ALBUMIN 3.7 GM/DL (3.2-5.2); ALBUMIN/GLOBULIN RATIO 1.09 (1.00-1.93); ALKALINE PHOSPHATASE 88 U/L (45-117); ALT/SGPT 272 U/L (12-78); ANION GAP 16 MEQ/L (8-16); AST/SGOT 277 U/L (7-37); BILIRUBIN,DIRECT 0.4 MG/DL (0.0-0.2); BLOOD UREA NITROGEN 14 MG/DL (7-18); CALCIUM LEVEL 8.4 MG/DL (8.5-10.1); CARBON DIOXIDE LEVEL 25 MEQ/L (21-32); CHLORIDE LEVEL 92 MEQ/L (98-107); CREATININE FOR GFR 1.11 MG/DL (0.70-1.30); GLOMERULAR FILTRATION RATE > 60.0 (>60); GLUCOSE, FASTING 133 MG/DL (70-105); POTASSIUM SERUM 3.1 MEQ/L (3.5-5.1); SODIUM LEVEL 133 MEQ/L (136-145); TOTAL PROTEIN 7.1 GM/DL (6.4-8.2)
[2017-02-06 17:28] LABS: BASO % 0.2 % (0.0-1.0); IMMATURE GRANULOCYTE % 0.3 % (0-0); LYMPH # 2.6 10^3/uL (1.5-6.5); LYMPH % 21.7 % (24.0-44.0); MEAN CORPUSCULAR VOLUME 86.5 fl (80.0-96.0); MONO # 0.6 10^3/uL (0.0-0.8); MONO % 4.9 % (0.0-5.0); NEUTROPHILS # 8.7 10^3/uL (1.8-7.7); NEUTROPHILS % 72.9 % (36.0-66.0); PLATELET COUNT, AUTOMATED 279 10^3/uL (150-450); RED CELL DISTRIBUTION WIDTH 13.5 % (11.5-14.5); WHITE BLOOD COUNT 11.9 10^3/uL (4.0-10.0)
[2017-02-06] MEDS: OXAZEPAM 15 MG CAP PO (17:30)
[2017-02-06 17:43] LABS: MAGNESIUM LEVEL 1.5 MG/DL (1.8-2.4)
[2017-02-06] MEDS: POTASSIUM CHLORIDE 10 MEQ SR TABLET PO (18:15)
[2017-02-06] MEDS ORDERED: OXAZEPAM 15 MG CAP PO (18:30)
[2017-02-06] MEDS ORDERED: ONDANSETRON 4MG/2ML VIAL (J2405) IV (18:30)
[2017-02-06] MEDS ORDERED: LORazepam 2 MG/ML VIAL (J2060) IV (19:15)
[2017-02-06] MEDS: MAG SULF 1GM/100ML (MAG RUN) 1 GM in APPROPRIATE DILUENT 1 EA IV ×2 (20:00→21:00)
[2017-02-07] MEDS: OXAZEPAM 15 MG CAP PO ×4 (00:16→17:10)
[2017-02-07 06:36] LABS: BASO # 0.1 10^3/uL (0.0-0.2); BASO % 0.7 % (0.0-1.0); EOS # 0.1 10^3/uL (0.0-0.50); EOS % 0.7 % (0.0-3.0); IMMATURE GRANULOCYTE % 0.3 % (0-0); LYMPH # 3.4 10^3/uL (1.5-6.5); LYMPH % 36.7 % (24.0-44.0); MEAN CORPUSCULAR HEMOGLOBIN 31.3 pg (27.0-33.0); MEAN CORPUSCULAR HGB CONC 35.8 g/dl (32.0-36.5); MEAN CORPUSCULAR VOLUME 87.4 fl (80.0-96.0); MONO # 0.6 10^3/uL (0.0-0.8); MONO % 6.1 % (0.0-5.0); NEUTROPHILS # 5.1 10^3/uL (1.8-7.7); NEUTROPHILS % 55.5 % (36.0-66.0); PLATELET COUNT, AUTOMATED 195 10^3/uL (150-450); WHITE BLOOD COUNT 9.2 10^3/uL (4.0-10.0)
[2017-02-07 06:52] LABS: ANION GAP 8 MEQ/L (8-16); BLOOD UREA NITROGEN 8 MG/DL (7-18); CALCIUM LEVEL 8.2 MG/DL (8.5-10.1); CARBON DIOXIDE LEVEL 28 MEQ/L (21-32); CHLORIDE LEVEL 103 MEQ/L (98-107); CREATININE FOR GFR 1.08 MG/DL (0.70-1.30); GLOMERULAR FILTRATION RATE > 60.0 (>60); GLUCOSE, FASTING 99 MG/DL (70-105); POTASSIUM SERUM 3.6 MEQ/L (3.5-5.1); SODIUM LEVEL 139 MEQ/L (136-145)
[2017-02-07 07:22] LABS: ALBUMIN/GLOBULIN RATIO 0.88 (1.00-1.93); ALKALINE PHOSPHATASE 71 U/L (45-117); ALT/SGPT 210 U/L (12-78); AST/SGOT 207 U/L (7-37); BILIRUBIN,DIRECT 0.5 MG/DL (0.0-0.2); BILIRUBIN,TOTAL 1.7 MG/DL (0.2-1.0); MAGNESIUM LEVEL 2.1 MG/DL (1.8-2.4); TOTAL PROTEIN 6.4 GM/DL (6.4-8.2)
[2017-02-07] MEDS: FOLIC ACID 1 MG TAB PO (09:07)
[2017-02-07] MEDS: POTASSIUM CHLORIDE 10 MEQ SR TABLET PO (09:07)
[2017-02-07] MEDS: MULTIVITAMINS/MINERALS THERAP 1 TAB PO (09:07)
[2017-02-07] MEDS: THIAMINE 100 MG TAB PO (09:07)
[2017-02-07] MEDS: ENOXAPARIN 40 MG/0.4 ML SYRINGE (J1650) SC (09:08)
[2017-02-08] MEDS: OXAZEPAM 15 MG CAP PO ×3 (00:01→12:10)
[2017-02-08 05:43] LABS: MEAN CORPUSCULAR HEMOGLOBIN 32.1 pg (27.0-33.0); MEAN CORPUSCULAR VOLUME 89.2 fl (80.0-96.0); PLATELET COUNT, AUTOMATED 169 10^3/uL (150-450); RED CELL DISTRIBUTION WIDTH 13.9 % (11.5-14.5); WHITE BLOOD COUNT 7.3 10^3/uL (4.0-10.0)
[2017-02-08 06:09] LABS: ALBUMIN 2.8 GM/DL (3.2-5.2); ALBUMIN/GLOBULIN RATIO 0.78 (1.00-1.93); ALKALINE PHOSPHATASE 71 U/L (45-117); ALT/SGPT 173 U/L (12-78); ANION GAP 5 MEQ/L (8-16); AST/SGOT 144 U/L (7-37); BILIRUBIN,TOTAL 1.5 MG/DL (0.2-1.0); BLOOD UREA NITROGEN 8 MG/DL (7-18); CALCIUM LEVEL 8.6 MG/DL (8.5-10.1); CARBON DIOXIDE LEVEL 33 MEQ/L (21-32); CHLORIDE LEVEL 101 MEQ/L (98-107); CREATININE FOR GFR 1.13 MG/DL (0.70-1.30); GLOMERULAR FILTRATION RATE > 60.0 (>60); GLUCOSE, FASTING 83 MG/DL (70-105); MAGNESIUM LEVEL 2.2 MG/DL (1.8-2.4); POTASSIUM SERUM 3.5 MEQ/L (3.5-5.1); SODIUM LEVEL 139 MEQ/L (136-145); TOTAL PROTEIN 6.4 GM/DL (6.4-8.2)
[2017-02-08] MEDS: THIAMINE 100 MG TAB PO (08:48)
[2017-02-08] MEDS: MULTIVITAMINS/MINERALS THERAP 1 TAB PO (08:48)
[2017-02-08] MEDS: FOLIC ACID 1 MG TAB PO (08:48)
[2017-02-08] MEDS: ENOXAPARIN 40 MG/0.4 ML SYRINGE (J1650) SC (08:49)
== END 2017-02-08 14:29 | disposition home or self-care (01) | DRG 899 ==
LOC: M MSPAV 02-07 18:20 → M ED 16:04 → M ED INP 18:16
DX: F10.239 Alcohol dependence with withdrawal, unspecified (principal); E87.6 Hypokalemia; E83.42 Hypomagnesemia; F17.210 Nicotine dependence, cigarettes, uncomplicated; I10 Essential (primary) hypertension; K70.10 Alcoholic hepatitis without ascites